=== PATIENT | female | born 1975 | race Caucasian/White ===

== ENCOUNTER 2017-12-26 19:25 | Emergency (ER) | payer OTHER ==
[~2017-12-26] VITALS: Ht 170.2 cm; Wt 65.8 kg
[2017-12-26 19:25] VITALS: BP_SYST 109
--- NOTE | 2017-12-26 19:25 | NUR ---
Placed in room 06 . Placed on color television console monitor, blood pressure machine and pulse oximeter. To gown for exam. Side rails up. Report given to BRITTANY Cosme
--- NOTE | 2017-12-26 19:30 | NUR ---
Patient ambulatory to ED a/o x 4 with c/o left sided chest pain. Reports sudden onset of sharp 6/10 left disded chest pain that does not radiate. +Dizzy +Nausea. Denies cardiac Hx. No resent stres per patient. -SOB
--- NOTE | 2017-12-26 19:35 | NUR ---
ED MD Israel at bedside for medical evaluation.
[2017-12-26 20:00] LABS: BASOPHILS # (AUTO) 0.1 K/uL (0.0-0.2); EOSINOPHILS # (AUTO) 0.1 K/uL (0.0-0.4)
[2017-12-26 20:03] LABS: BASOPHILS % (AUTO) 0.7 % (0.0-2.0); EOSINOPHILS % (AUTO) 1.3 % (0.0-4.0); HEMATOCRIT 38.9 % (36-48); HEMOGLOBIN 13.4 g/dL (12.0-16.0); LYMPHOCYTES # (AUTO) 2.3 K/uL (1.0-5.5); LYMPHOCYTES % (AUTO) 26.2 % (20.5-51.5); MEAN CORPUSCULAR HEMOGLOBIN 33 pg (27-31); MEAN CORPUSCULAR HGB CONC 34 % (32-36); MEAN CORPUSCULAR VOLUME 95 fL (79.0-98.0); MONOCYTES # (AUTO) 0.8 K/uL (0.0-1.0); MONOCYTES % (AUTO) 8.8 % (1.7-9.3); NEUTROPHILS # (AUTO) 5.5 K/uL (1.8-7.7); PLATELET COUNT (AUTO) 265 K/uL (130-430); RED BLOOD CELL COUNT(AUTO) 4.09 MIL/uL (4.2-6.2); RED CELL DISTRIBUTION WIDTH 11.6 % (9.0-15.0); WHITE BLOOD COUNT (AUTO) 8.8 K/uL (4.8-10.8)
[2017-12-26 20:13] LABS: CALCIUM 8.6 mg/dL (8.4-11.0); CREATININE 0.79 mg/dL (0.55-1.30); POTASSIUM 3.5 mmol/L (3.5-5.1)
[2017-12-26] MEDS ORDERED: ONDANSETRON HCL 4 MG/2 ML VIAL IVP ONE (20:15)
[2017-12-26] MEDS ORDERED: MORPHINE 4 MG/ML INJ. SYRINGE IVP ONE (20:15)
[2017-12-26 20:16] LABS: PROTHROMBIN TIME 9.8 SECS (9.5-12.5)
[2017-12-26 20:21] LABS: ALBUMIN 3.5 g/dL (3.4-4.8); TOTAL BILIRUBIN 0.2 mg/dL (0.0-1.0)
[2017-12-26] MEDS ORDERED: MAG HYDROX/AL HYDROX/SIMETH 30 ML, BELLADONNA ALKALOIDS/PHENOBARB 10 ML, LIDOCAINE VISC... PO ONE ×3 (22:15)
--- NOTE | 2017-12-26 22:30 | NUR ---
ED MD Israel at bedside reassessing patient.
--- NOTE | 2017-12-26 22:30 | NUR ---
Patient vomited x 1 following GI cocktail. ED MD Israel made aware.
[2017-12-26 22:37] VITALS: BP_SYST 113
--- NOTE | 2017-12-26 22:37 | NUR ---
Patient given written and verbal discharge instructions and verbalizes understanding. ER MD discussed with patient the results and treatment provided. Patient in stable condition. ID arm band removed. IV catheter removed intact and dressing applied, no active bleeding. Rx of ranitidine and tylenol w/ codeine given. Patient educated on pain management and to follow up with PMD. Pain Scale 3/10 tolerable for patient.Opportunity for questions provided and answered. Medication side effect fact sheet provided.
== END 2017-12-26 22:37 | disposition home or self-care (01) ==
LOC: SED 19:25
DX: R07.89 Other chest pain (principal); K21.9 Gastro-esophageal reflux disease without esophagitis; F41.9 Anxiety disorder, unspecified; Z88.8 Allergy status to other drugs, medicaments and biological substances
CPT/HCPCS: 36415; 71045; 80053; 82550; 83690; 83880; 84484; 85025; 85610; 85730; 93005; 96374; 96375; 99285; J2001; J2270; J2405